=== PATIENT | male | born 1940 | race Caucasian/White ===

== ENCOUNTER 2017-02-27 18:04 | Inpatient (IN) | payer MEDICARE, OTHER ==
[~2017-02-27] VITALS: Ht 182.9 cm; Wt 87.4 kg
[2017-02-27] MEDS ORDERED: IPRATROPIUM (NEB) 0.5 MG/2.5 ML AMP INH STA (23:17)
[2017-02-27] MEDS ORDERED: FUROSEMIDE 100 MG INJ IV STA (23:17)
[2017-02-27] MEDS ORDERED: ALBUTEROL 0.083% (NEB) 2.5 MG/3 ML AMP INH STA (23:17)
[2017-02-27] MEDS ORDERED: WARF7.5T PO (23:41)
[2017-02-27] MEDS ORDERED: CARV25TA79 PO (23:41)
[2017-02-27] MEDS ORDERED: DIGO125T19 PO (23:42)
[2017-02-27] MEDS ORDERED: ROSU5TAB5 PO (23:42)
[2017-02-27] MEDS ORDERED: AMLO2.5T78 PO (23:43)
[2017-02-27] MEDS ORDERED: UBID30CA12 PO (23:44)
[2017-02-27 23:45] LABS: ABNORMAL IP MESSAGE 1; BASOPHIL # 0.1 10^3/ul (0.0-0.1); BASOPHILS % 0.8 % (0.0-2.0); EOSINOPHILS # 0.8 10^3/ul (0.0-0.5); EOSINOPHILS % 9.7 % (0.0-7.0); HEMATOCRIT 41.1 % (42.0-52.0); HEMOGLOBIN 13.9 g/dl (14.0-18.0); LYMPHOCYTES # 1.9 10^3/ul (0.8-2.9); LYMPHOCYTES % 22.4 % (15.0-51.0); MEAN CORPUSCULAR HEMOGLOBIN 34.6 pg (29.0-33.0); MEAN CORPUSCULAR HGB CONC 33.8 g/dl (32.0-37.0); MEAN CORPUSCULAR VOLUME 102.2 fl (82.0-101.0); MONOCYTES % 11.4 % (0.0-11.0); NEUTROPHIL # 4.7 10^3/ul (1.6-7.5); NEUTROPHILS % 55.5 % (39.0-77.0); PLATELET COUNT 86 10^3/UL (140-415); POSITIVE DIFF @See below; RED BLOOD COUNT 4.02 10^6/ul (4.70-6.10); RED CELL DISTRIBUTION WIDTH 12.8 % (11.5-14.5); WHITE BLOOD COUNT 8.4 10^3/ul (4.8-10.8)
[2017-02-28] VITALS (15 sets, daily range): BP systolic 129–167; BP diastolic 61–70; PULSE 36–59; RESP 16–18; TEMP 97.8; Ht 182.9 cm; Wt 87.4 kg
[2017-02-28 00:05] LABS: ALANINE AMINOTRANSFERASE 37 IU/L (13-69); ALBUMIN 4.4 g/dl (3.3-4.9); ALBUMIN/GLOBULIN RATIO 1.18; ALKALINE PHOSPHATASE 78 IU/L (42-121); ANION GAP 17 (8-16); ASPARTATE AMINO TRANSFERASE 44 IU/L (15-46); BILIRUBIN,INDIRECT 1.7 mg/dl (0-1.1); BILIRUBIN,TOTAL 1.7 mg/dl (0.2-1.3); BLOOD UREA NITROGEN 19 mg/dl (7-20); CARBON DIOXIDE 27 mmol/L (21-31); CHLORIDE 103 mmol/L (97-110); CREATININE 1.05 mg/dl (0.61-1.24); GLUCOSE 85 mg/dl (70-220); POTASSIUM 4.8 mmol/L (3.5-5.1); SODIUM 142 mmol/L (135-144); TOTAL PROTEIN 8.1 g/dl (6.1-8.1)
[2017-02-28 00:17] LABS: B-TYPE NATRIURETIC PEPTIDE 1290 PG/ML (0-450)
[2017-02-28 00:22] LABS: TROPONIN-I < 0.012 ng/ml (0.00-0.12)
[2017-02-28 00:36] LABS: INR 1.87; PROTIME 21.9 Sec (11.9-14.9); PT RATIO 1.7
[2017-02-28 00:37] LABS: PARTIAL THROMBOPLASTIN TIME 36.6 Sec (25.0-35.0)
--- NOTE | 2017-02-28 01:30 | RADRPT ---
PROCEDURE: XR Chest. CLINICAL INDICATION: Shortness of breath. TECHNIQUE: Single frontal chest x-ray. COMPARISON: None. FINDINGS: Heart is enlarged. There are atherosclerotic calcifications of the aortic knob.. Pulmonary vessels are top normal caliber.. There are right greater than left pleural effusions with associated basilar atelectasis.. There is no pneumothorax. The osseous structures are unremarkable. IMPRESSION: Cardiomegaly. No CHF. Right greater than left pleural effusion with basilar atelectasis. RPTAT: HMVK .Marcus Leonardo MD, MD Date Time Electronically viewed and signed by .Marcus Leonardo MD, on 02/28/2017 01:30 .K/
--- NOTE | 2017-02-28 02:17 | ERD ---
ER Documentation Chief Complaint Chief Complaint sob today HPI This is a 76-year-old male comes in with complaints of shortness of breath earlier today getting progressively worse. He is noticeable swelling over the past 2 days. Denies any chest pain nausea vomiting fevers or chills. Shortness breath is worse when he lays down and worse when he exerts himself. ROS All systems reviewed and are negative except as per history of present illness. Medications Home Meds Reported Medications Ubidecarenone (Coq-10) Unknown Strength Capsule, 1 CAP PO BID, CAP 02/27/17 Amlodipine Besylate* (Amlodipine Besylate*) 2.5 Mg Tablet, 2.5 MG PO QHS, #30 TAB 02/27/17 Rosuvastatin Calcium* (Crestor*) 5 Mg Tablet, 5 MG PO QHS, #30 TAB 02/27/17 Digoxin* (Digox*) 125 Mcg Tablet, 0.125 MG PO DAILY, TAB 02/27/17 Carvedilol* (Carvedilol*) 25 Mg Tablet, 25 MG PO BID, #60 TAB 02/27/17 Warfarin Sodium* (Coumadin*) 7.5 Mg Tablet, 7.5 MG PO DAILY, TAB TAKE 1 TAB IN SAT,W, AND TAKE 1/2 TAB IN M,T,TH,F,SUN 02/27/17 Allergies Allergies: Coded Allergies: codeine (Unverified Allergy, Unknown, 02/27/17) PMhx/Soc Medical and Surgical Hx: pt denies Surgical Hx Hx Neurological Disorder: No Hx Respiratory Disorders: No Hx Cardiac Disorders: Yes (CHF) Hx Psychiatric Problems: No Hx Miscellaneous Medical Probl: No Hx Alcohol Use: No Hx Substance Use: No Hx Tobacco Use: No Smoking Status: Never smoker Physical Exam Vitals Vital Signs Date Time Temp Pulse Resp B/P Pulse Ox O2 Delivery O2 Flow Rate FiO2 02/27/17 23:37 Nasal Cannula 2.0 02/27/17 23:35 Nasal Cannula 2 02/27/17 23:34 58 18 98 Nasal Cannula 2.0 02/27/17 18:11 98.2 60 20 179/73 93 Physical Exam Const: [] Head: Atraumatic Eyes: Normal Conjunctiva ENT: Normal External Ears, Nose and Mouth. Neck: Full range of motion..~ No meningismus. Resp: Clear to auscultation bilaterally Cardio: Regular rate and rhythm, no murmurs Abd: Soft, non tender, non distended. Normal bowel sounds Skin: No petechiae or rashes Back: No midline or flank tenderness Ext: No cyanosis, or edema Neur: Awake and alert Psych: Normal Mood and Affect Result Diagram: 02/27/17231902/27/17 2320 Results 24 hrs Laboratory Tests Test 02/27/17 23:20 02/27/17 23:50 White Blood Count 8.410^3/ul Red Blood Count 4.0210^6/ul Hemoglobin 13.9g/dl Hematocrit 41.1% Mean Corpuscular Volume 102.2fl Mean Corpuscular Hemoglobin 34.6pg Mean Corpuscular Hemoglobin Concent 33.8g/dl Red Cell Distribution Width 12.8% Platelet Count 8610^3/UL Mean Platelet Volume 11.0fl Neutrophils % 55.5% Lymphocytes % 22.4% Monocytes % 11.4% Eosinophils % 9.7% Basophils % 0.8% Nucleated Red Blood Cells % 0.0/100WBC Neutrophils # 4.710^3/ul Lymphocytes # 1.910^3/ul Monocytes # 1.010^3/ul Eosinophils # 0.810^3/ul Basophils # 0.110^3/ul Nucleated Red Blood Cells # 0.010^3/ul Sodium Level 142mmol/L Potassium Level 4.8mmol/L Chloride Level 103mmol/L Carbon Dioxide Level 27mmol/L Anion Gap 17 Blood Urea Nitrogen 19mg/dl Creatinine 1.05mg/dl Glucose Level 85mg/dl Calcium Level 10.0mg/dl Total Bilirubin 1.7mg/dl Direct Bilirubin 0.00mg/dl Indirect Bilirubin 1.7mg/dl Aspartate Amino Transf (AST/SGOT) 44IU/L Alanine Aminotransferase (ALT/SGPT) 37IU/L Alkaline Phosphatase 78IU/L Troponin I < 0.012ng/ml B-Type Natriuretic Peptide 1290PG/ML Total Protein 8.1g/dl Albumin 4.4g/dl Globulin 3.70g/dl Albumin/Globulin Ratio 1.18 Prothrombin Time 21.9Sec Prothrombin Time Ratio 1.7 INR International Normalized Ratio 1.87 Activated Partial Thromboplast Time 36.6Sec Current Medications Medications (Trade) Dose Ordered Sig/Osmin Route PRN Reason Start Time Stop Time Status Last Admin Dose Admin Albuterol (Proventil 0.083% (Neb)) 5 mg ONCE STAT INH 02/27/17 23:17 02/27/17 23:28 DC 02/27/17 23:33 Ipratropium [place] (Atrovent 0.02% (Neb)) 0.5 mg ONCE STAT INH 02/27/17 23:17 02/27/17 23:28 DC 02/27/17 23:33 Furosemide (Lasix) 80 mg ONCE STAT IV 02/27/17 23:17 02/27/17 23:28 DC 02/27/17 23:43 Procedures/MDM EKG: Rate/Rhythm: [Normal Sinus Rhythm] QRS, ST, T-waves: [No changes consistent w/ acute ischemia] Impression: [No evidence of ischemia or arrhythmia] Chest X-ray 1V Interpreted by me: Soft Tissue: No acute abnormalities Bones: No acute abnormalities Mediastinum/Cardiac Silhouette/Lungs: [No acute abnormalities] Medical decision-making: Patient's heart failure symptoms is concerning for acute decompensation and will require inpatient workup and monitoring. Further w/u for ischemia, arrhythmia, PE or dissection will be deferred to the inpatient team. Accepting Care Team: Current data and ongoing care discussed. Time: 2:10 AM Primary Provider: Admitted to Dr. Leigh who is on-call for primary care physician Consulting: [XOXOXO] Outstanding Data: none Departure Diagnosis: Primary Impression: Shortness of breath Condition: Serious TL PHILLIPS Feb 28, 2017 02:16
[2017-02-28] MEDS ORDERED: ACETAMINOPHEN 325 MG TAB PO PRN (08:30)
[2017-02-28] MEDS ORDERED: hydrALAzine 20 MG INJ IV PRN (08:30)
[2017-02-28] MEDS ORDERED: DIGOXIN 0.125 MG TAB PO SCH (09:00)
--- NOTE | 2017-02-28 13:59 | HP ---
DATE OF ADMISSION: 02/28/2017 ADMITTING DIAGNOSIS: Possible CHF. HISTORY OF PRESENT ILLNESS: The patient is a 76-year-old male with chronic atrial fibrill ation, nonischemic cardiomyopathy, hypertension, alcohol abuse, hyperlipidemia who presented to the emergency room with shortness of breath and weakness and leg swelling over the last several days. T he patient reports that he has been having some dyspnea on exertion walking to the car or doing thin gs in and around the house and does not have to do a lot to get out of breath. The patient is able to recover somewhat quickly from his shortness of breath. The patient denies any true orthopnea but has noticed increased swelling in the ankles over the last week or two. The patient denies any osorio st pain, palpitations, hemoptysis. The patient denies any wheezing, cough or other. REVIEW OF SYSTEMS: Otherwise unremarkable. PAST MEDICAL HISTORY: Nonischemic cardiomyopathy, chronic atrial fibrillation, alcohol abuse, hyper tension, hyperlipidemia, gout, chronic venous insufficiency. PAST SURGICAL HISTORY: Cataract extraction with lens implantation. FAMILY HISTORY: Father at age 65 of cancer. Mother at age 91 of congestive heart failure . ALLERGIES: NONE. MEDICATIONS: 1. Digoxin 0.125 mcg daily. 2. Rosuvastatin 5 mg daily. 3. Coenzyme Q10 one cap b.i.d. 4. Amlodipine 2.5 mg daily. 5. Warfarin 7.5 mg daily. 6. Carvedilol 25 mg b.i.d. SOCIAL HISTORY: Patient is , retired. No tobacco. Patient drinks vodka daily. PHYSICAL EXAMINATION: VITAL SIGNS: Initially in the emergency room, blood pressure was 179/73, temperature 98.2, pulse is 60, respirations 20, oxygen saturation 93% on room air. Currently pulse is 37, blood pressure last done at 6:00 this morning was 139/63, oxygen saturation 98% on room air, respirations 18, pulse is 55 at that time and temperature 97.9. GENERAL: Well-developed, well-nourished male in no acute distress, lying in bed. HEENT: EOMI, PERRLA. Oropharynx clear without exudate. NECK: Jugular venous pressure approximately 6 to 7 cm at 30 degrees of elevation, 2+ carotid upstro ke without bruits. No thyromegaly. No lymphadenopathy. CHEST: Decreased breath sounds bilateral bases with slight dullness, otherwise clear to auscultatio n bilaterally without rales, rhonchi or wheezes. HEART: Bradycardic and irregular. A I/ systolic murmur. ABDOMEN: Soft, nontender, no obvious hepatojugular reflux. Normoactive bowel sounds, nondistended. No hepatosplenomegaly noted. GENITOURINARY: Normal male. No masses. EXTREMITIES: No cyanosis, clubbing and there is 1+ bilateral lower extremity edema. There are good distal pulses with venous stasis changes bilateral lower extremities. NEUROLOGIC: Nonfocal except for decreased pinprick, fine touch, vibration and temperature bilateral lower extremities in a stocking distribution. LABORATORY EXAMINATION: White blood cell count 8.4, hemoglobin of 13.9, hematocrit 41.1, platelets of 86. PT of 21.9, INR of 1.87, PTT of 36.6. Sodium 142, potassium 4.8, chloride 103, bicarbonate 27, BUN of 19, creatinine 1.05, glucose of 85, calcium 10.0. Total bilirubin 1.7, AST of 44, ALT of 37, alkaline phosphatase 78. Troponin #1 less than 0.012. Troponin #2 0.023. Brain natriuretic p eptide is 1290. Albumin is 4.4. TSH is 4.320. Chest x-ray shows cardiomegaly with no evidence of CHF. There is right greater than left pleural effusion with basilar atelectasis. IMPRESSION: The patient is a 76-year-old male with chronic atrial fibrillation, nonischemic cardiom yopathy, hypertension, hyperlipidemia, alcohol abuse who presented to the emergency room with shortn ess of breath, leg swelling and weakness. The patient was found to be bradycardic and possible mild right heart failure with no evidence of left heart failure, except for pleural effusions. The roselia ent is being admitted to telemetry for further evaluation and treatment. 1. Bradycardia/congestive heart failure/hypertension/nonischemic cardiomyopathy. The patient is br adycardic and likely related to combination of his carvedilol as well as his digoxin. We will hold these medications and continued on telemetry. The patient does have atrial fibrillation and may nee d some form of rate control and if he continues to be bradycardic will possibly need pacemaker. Matteo l have cardiology assist in the patient's workup and treatment. We will check a digoxin level as we ll as thyroid functions in order to evaluate further and will continue with amlodipine and p.r.n. hy dralazine for his blood pressure. 2. Hyperlipidemia. We will continue with Rosuvastatin. 3. Thrombocytopenia, new, unclear etiology. We will continue to monitor as this is new for the pat ient and it may be related to his alcohol use. Dictated By: JOY DIAZ MD SR/NTS Conf#: [id number] DID#: [id number]
--- NOTE | 2017-02-28 14:52 | CONS ---
Date/Time of Note Date/Time of Note DATE: 02/28/17 TIME: 14:42 Assessment/Plan Assessment/Plan Chief Complaint/Hosp Course Impression: Acute on chronic systolic heart failure- elevated bnp, pulm congestion on chxr. NYHA III symptoms. NICM per report, will need to confirm with records and obtain echo. cont diuresis. etoh cessation recommended - cont iv diuretic, goal neg 1L at least daily - hold dig/coreg given kirby - if bp stable will consider adding acei - cont tele monitoring - obtain echo Pauses- no reported symptoms, HD stable. on avn blockers, will hold. no indication for acute pacer, follow closely on tele. - tele monitoring - holding all avn blockers - monitor bp closely as well or for symptoms. - atropine prn severe kirby - no acute indication for pacer placement, will cont to re-eval Afib- on coumadin goal inr 2.0 to 3.0 - dosing per Dr. Arias - rate controlled, slow. holding avn blockers - check dig level ETOH hx- heavy drinker, low plt ? related - watch hr/bp given for e/o withdrawl while inpt - cessation recommended given NICM hx HLD- cont home statin Problems: Consultation Date/Type/Reason Admit Date/Time Feb 28, 2017 at 02:14 Date of Consultation: Feb 28, 2017 Type of Consultation: Cardiology Reason for Consultation Bradycardia, Afib, CHF Referring Provider: JOY ARIAS MD- Hx of Present Illness Mr. Bañuelos is a 76 y.o. with h/o of ETOH abuse, NICM, Afib who presents with acute on chornic systolic heart failure and afib with slow ventricular response. Pt states has 2 weeks of progressive dyspnea on exertion and fatigue. notices he has to stop when mowing lawn to rest, previously able to do activities without symptoms. also walking to bathroom now mild sob. no chest pain/ pressure, n/v, sweating. pt states no pnd, orthopnea. mild edema in ankles as of late. no palpitations, dizziness, fainting. no recent fevers, chills, sweats. takes medication regularly, no bleeding episodes. does drink 1 pint of vodka every evening he states Constitutional: no complaints Eyes: no complaints ENT: no complaints Respiratory: shortness of breath Cardiovascular: no complaints Gastrointestinal: no complaints Genitourinary: no complaints Musculoskeletal: no complaints Skin: no complaints Neurologic: no complaints Lymphatic: no complaints Psychological: nl mood/affect, no complaints Immunologic: no complaints Past Medical History PAST MEDICAL HISTORY: Nonischemic cardiomyopathy, chronic atrial fibrillation, alcohol abuse, hypertension, hyperlipidemia, gout, chronic venous insufficiency. Past Surgical History PAST SURGICAL HISTORY: Cataract extraction with lens implantation. Past Surgical Hx: other (mother chf) Social History Alcohol Use: heavy Smoking Status: Never smoker Drug Use: none Exam/Review of Systems Vital Signs Vitals Vital Signs Date Time Temp Pulse Resp B/P Pulse Ox O2 Delivery O2 Flow Rate FiO2 02/28/17 12:00 37 02/28/17 08:10 98.1 18 167/70 93 Room Air 02/28/17 02:37 2.0 Exam Constitutional: alert, oriented Psych: nl mood/affect, no complaints Head: normocephalic Eyes: EOMI, nl conjunctiva, nl lids ENMT: mucosa pink and moist, nl external ears & nose Neck: jvd, non-tender, supple Respiratory: other (crackles L>R base) Cardiovascular: other (slow irregualr, nl s1s2, ii/vi systolic llsb) Gastrointestinal: non-tender, other (mild distention), soft Musculoskeletal: muscle tone, nl gait and stance, other (mild ble edema < 1+) Extremities: normal pulses Neurological: ART CONSERVATOR II-XII intact, nl mental status, nl speech Skin: nl turgor Results Result Diagram: 02/27/170 02/27/17 2320 Results 24 hrs Laboratory Tests Test 02/27/17 23:20 02/27/17 23:50 02/28/17 08:31 02/28/17 08:32 White Blood Count 8.4 Red Blood Count 4.02 L Hemoglobin 13.9 L Hematocrit 41.1 L Mean Corpuscular Volume 102.2 H Mean Corpuscular Hemoglobin 34.6 H Mean Corpuscular Hemoglobin Concent 33.8 Red Cell Distribution Width 12.8 Platelet Count 86 L Mean Platelet Volume 11.0 H Neutrophils % 55.5 Lymphocytes % 22.4 Monocytes % 11.4 H Eosinophils % 9.7 H Basophils % 0.8 Nucleated Red Blood Cells % 0.0 Neutrophils # 4.7 Lymphocytes # 1.9 Monocytes # 1.0 H Eosinophils # 0.8 H Basophils # 0.1 Nucleated Red Blood Cells # 0.0 Sodium Level 142 Potassium Level 4.8 Chloride Level 103 Carbon Dioxide Level 27 Anion Gap 17 H Blood Urea Nitrogen 19 Creatinine 1.05 Glucose Level 85 Calcium Level 10.0 Total Bilirubin 1.7 H Direct Bilirubin 0.00 Indirect Bilirubin 1.7 H Aspartate Amino Transf (AST/SGOT) 44 Alanine Aminotransferase (ALT/SGPT) 37 Alkaline Phosphatase 78 Troponin I < 0.012 0.023 B-Type Natriuretic Peptide 1290 H Total Protein 8.1 Albumin 4.4 Globulin 3.70 H Albumin/Globulin Ratio 1.18 Prothrombin Time 21.9 H Prothrombin Time Ratio 1.7 INR International Normalized Ratio 1.87 Activated Partial Thromboplast Time 36.6 H Thyroid Stimulating Hormone (TSH) 4.320 Medications Medications Current Medications Amlodipine Besylate (Norvasc) 2.5 mg QHS PO ; Start 02/28/17 at 21:00 Warfarin Sodium (Coumadin) 7.5 mg DAILY@17 PO ; Start 02/28/17 at 17:00 Atorvastatin Calcium (Lipitor) 20 mg DAILY@21 PO ; Start 02/28/17 at 21:00 Hydralazine HCl (Apresoline) 5 mg Q6H PRN IV SBP>180 OR DBP>100; Start at 08:30 Acetaminophen (Tylenol Tab) 650 mg Q6H PRN PO PAIN AND OR ELEVATED TEMP; Start 02/28/17 at 08:30 Procedures Procedures EKG reviewed: afib with hr 58. tele reviewed: afib mostly 40s-50s, up to 60s with movement. episode of brief pauses maximum 3.2 seconds, no report of dizziness at the time per nursing. MAITE GARCIA Feb 28, 2017 14:52
[2017-02-28] MEDS ORDERED: WARFARIN 7.5 MG TAB PO SCH (17:00)
[2017-02-28] MEDS: AMLODIPINE 2.5 MG TAB PO SCH (21:55)
[2017-02-28] MEDS: ATORVASTATIN 20 MG TAB PO SCH (21:55)
[2017-03-01] VITALS (10 sets, daily range): BP systolic 105–138; BP diastolic 58–73; PULSE 42–56; RESP 12–18
[2017-03-01 07:06] LABS: ABNORMAL IP MESSAGE 1; BASOPHILS % 0.7 % (0.0-2.0); EOSINOPHILS # 0.5 10^3/ul (0.0-0.5); HEMATOCRIT 38.8 % (42.0-52.0); LYMPHOCYTES # 1.8 10^3/ul (0.8-2.9); LYMPHOCYTES % 32.3 % (15.0-51.0); MEAN CORPUSCULAR HEMOGLOBIN 34.1 pg (29.0-33.0); MEAN CORPUSCULAR HGB CONC 33.5 g/dl (32.0-37.0); MEAN CORPUSCULAR VOLUME 101.8 fl (82.0-101.0); MEAN PLATELET VOLUME 10.8 fl (7.4-10.4); MONOCYTE # 0.7 10^3/ul (0.3-0.9); MONOCYTES % 13.3 % (0.0-11.0); NEUTROPHIL # 2.4 10^3/ul (1.6-7.5); NEUTROPHILS % 44.5 % (39.0-77.0); PLATELET COUNT 72 10^3/UL (140-415); POSITIVE DIFF @See below; RED BLOOD COUNT 3.81 10^6/ul (4.70-6.10); RED CELL DISTRIBUTION WIDTH 12.9 % (11.5-14.5); WHITE BLOOD COUNT 5.4 10^3/ul (4.8-10.8)
[2017-03-01 07:26] LABS: INR 1.67; PT RATIO 1.6
[2017-03-01 07:31] LABS: CALCIUM 9.4 mg/dl (8.4-10.2); CREATININE 1.21 mg/dl (0.61-1.24); POTASSIUM 4.4 mmol/L (3.5-5.1)
--- NOTE | 2017-03-01 08:29 | RADRPT ---
PROCEDURE: XR Chest. CLINICAL INDICATION: CHF TECHNIQUE: Single frontal chest x-ray. COMPARISON: CHEST 02/27/2017 FINDINGS: Hazy bibasilar pulmonary opacities are again noted, greater on the right. No pneumothorax is identif ied. There is stable mild cardiomegaly Aortic atherosclerotic calcification is noted. The osseous structures are remarkable for degenerative enthesopathy of the spine. IMPRESSION: 1. Stable hazy bibasilar pulmonary opacities, greater on the right - considerations include atelect asis and/or mild to moderate pleural effusions. 2. Stable mild cardiomegaly and aortic atherosclerosis. RPTAT: QQ .Josh Donaldson MD, MD Date Time Electronically viewed and signed by .Josh Donaldson MD, on 03/01/2017 08:28 .R/
--- NOTE | 2017-03-01 09:34 | RADRPT ---
Echocardiogram Report Patient Name: JULIENNE BAL Gender: Male Date: 1940 Study Date: 01-Mar-2017 Tinsmith Helper: David Manning [facility] Location: [id number] Ref. Physician: BABATUNDE GARCIA Quality: Good Procedures: Transthoracic echocardiogram with complete 2D, M-Mode, and doppler examination. Indications: Congestive Heart Failure. 2D/M Mode Doppler Measurement Value Normal Ranges Measurement Value Normal Ranges LVIDd 2D 4.7 3.5 - 5.6 cm AV Peak Anuel 1.8 m/sec LVIDs 2D 3.1 2.1 - 4.1 cm AV Peak PG 12.9 mmHg LVPWd 2D 1.1 0.6 - 1.1 cm AI Peak PG 66.7 mmHg IVSd 2D 1.0 0.6 - 1.1 cm AI Peak Anuel 4.1 m/sec AoR Diam 2D 3.0 2.0 - 3.7 cm AI PHT 604.3 msec EDV 2D 101.8 cm3 LVOT Peak Anuel 1.0 m/sec ESV 2D 29.8 cm3 LVOT Peak PG 3.6 mmHg LA Dimen 2D 4.1 2.3 - 4.0 cm MV E Peak Anuel 1.2 m/sec MV A Peak Anuel 0.2 m/sec MV E/A 6.3 MV Decel Time 175 msec MV Decel Davie 7 MV E/A 6.3 TR Peak Anuel 3.6 m/sec TR Peak PG 50.8 mmHg RVSP 59.0 mmHg Findings Left Ventricle: Normal left ventricular cavity size. Normal left ventricular wall thickness. Mild concentric left ventricular hypertrophy. Ejection fraction is visually estimated at 65 %. Tissue Doppler/Mitral Doppler indices are indeterminate in this study due to the presence of afib. Right Ventricle: Normal right ventricular size. Normal right ventricular systolic function. Left Atrium: There is mild enlargement of left atrium. Right Atrium: There is moderate enlargement of right atrium. Mitral Valve: Mitral valve leaflets appear mildly thickened. Mild mitral annular calcification. Trace mitral regurgitation. Aortic Valve: No hemodynamically significant aortic stenosis by doppler. Aortic cusps appear mildly calcified. Mild aortic valve regurgitation. Tricuspid Valve: Normal appearance of the tricuspid valve. Right ventricular systolic pressure is consistent with moderate pulmonary hypertension. Estimated peak PA systolic pressure 59 mmHg. There is moderate tricuspid regurgitation. Pulmonic Valve: Normal pulmonic valve appearance. There is trace pulmonic regurgitation. Pericardium: Trivial pericardial effusion. Aorta: Normal aortic root. IVC: Dilated IVC with respiratory collapse consistent with elevated right atrial pressure. Conclusions Normal left ventricular cavity size. Normal left ventricular wall thickness. Mild concentric left ventricular hypertrophy. Ejection fraction is visually estimated at 65 %. Tissue Doppler/Mitral Doppler indices are indeterminate in this study due to the presence of afib. Normal right ventricular size. Normal right ventricular systolic function. There is mild enlargement of left atrium. There is moderate enlargement of right atrium. No hemodynamically significant aortic stenosis by doppler. Aortic cusps appear mildly calcified. Mild aortic valve regurgitation. Normal appearance of the tricuspid valve. Right ventricular systolic pressure is consistent with moderate pulmonary hypertension. Estimated peak PA systolic pressure 59 mmHg. There is moderate tricuspid regurgitation. Trivial pericardial effusion. Normal aortic root. Dilated IVC with respiratory collapse consistent with elevated right atrial pressure. No Vegetation, masses, or thrombi seen. Electronically Signed By: Babatunde Garcia 01-Mar-2017 09:33:37 -0800 Patient Name: JULIENNE BAL Study Date: 01-Mar-2017 [id number]
--- NOTE | 2017-03-01 09:41 | CONS ---
Date/Time of Note Date/Time of Note DATE: 03/01/17 TIME: 09:34 Assessment/Plan Assessment/Plan Chief Complaint/Hosp Course Impression: Acute on chronic systolic heart failure- elevated bnp, pulm congestion on chxr. NYHA III symptoms. NICM with normalized LVEF likely 2/2 h/o ETOH use. normal LVEF/wall motion on echo this am. - switch to po lasix 40mg daily to keep slightly negative - low na diet, daily wts. - hold dig/coreg given kirby - etoh cessation Pauses- no reported symptoms, HD stable. holding avn blockers, hr increases with activity. no indication for acute pacer, follow closely on tele. - tele monitoring - holding all avn blockers - atropine prn severe kirby - no acute indication for pacer placement, will cont to re-eval Afib- on coumadin goal inr 2.0 to 3.0 - dosing per Dr. Arias - rate controlled, slow. holding avn blockers ETOH hx- heavy drinker, low plt ? related - watch hr/bp given for e/o withdrawal while inpt - cessation recommended given NICM hx HLD- cont home statin Problems: Consultation Date/Type/Reason Admit Date/Time Feb 28, 2017 at 15:31 Initial Consult Date 02/28/17 Type of Consultation: Cardiology Referring Provider: JOY ARIAS MD- 24 HR Interval Summary Free Text/Dictation no acute events. pt state feels well. no chest pain, sob. ambulatory no dizziness, falls, blurred vision. tele reviewed, had 3.08 sec pause at 3:48 pm yesterday, otherwise no pauses. hrs mostly 50s, up to 60s-70s with ambulating. lowest 38 while sleeping. Detailed Summary ENT: No bleeding, No congestion, No discharge, No dysphagia, No no complaints, No other, No pain, No sore throat Respiratory: No cough, No no complaints, No other, No pain, No pleuritic pain, No shortness of breath, No sputum, No wheezing Cardiovascular: No chest pain, No edema, No lightheadedness, No no complaints, No orthopenea, No other, No palpitations, No paroxysmal nocturnal dyspnea Gastrointestinal: No blood, No constipation, No decreased appetite, No diarrhea , No flatus, No nausea, No no complaints, No other, No pain, No passing stool, No vomiting Exam/Review of Systems Vital Signs Vitals Vital Signs Date Time Temp Pulse Resp B/P Pulse Ox O2 Delivery O2 Flow Rate FiO2 03/01/17 08:00 51 03/01/17 06:09 99.0 18 105/60 94 Nasal Cannula 1.0 Intake and Output 02/28/17 02/28/17 03/01/17 15:00 23:00 07:00 Intake Total 1200 ml 950 ml Balance 1200 ml 950 ml Exam Constitutional: alert, oriented Psych: nl mood/affect, no complaints Head: normocephalic Eyes: EOMI, nl conjunctiva, nl lids ENMT: mucosa pink and moist, nl external ears & nose Neck: jvd, non-tender, supple Respiratory: other (crackles L>R base) Cardiovascular: other (slow irregualr, nl s1s2, ii/vi systolic llsb) Gastrointestinal: non-tender, other (mild distention), soft Musculoskeletal: muscle tone, nl gait and stance, other (mild ble edema < 1+) Extremities: normal pulses Neurological: SCENARIO WRITER II-XII intact, nl mental status, nl speech Skin: nl turgor Results Result Diagram: 03/01/1763203/01/1733 Results 24 hrs Laboratory Tests Test 03/01/17 06:33 White Blood Count 5.4 # Red Blood Count 3.81 L Hemoglobin 13.0 L Hematocrit 38.8 L Mean Corpuscular Volume 101.8 H Mean Corpuscular Hemoglobin 34.1 H Mean Corpuscular Hemoglobin Concent 33.5 Red Cell Distribution Width 12.9 Platelet Count 72 L Mean Platelet Volume 10.8 H Neutrophils % 44.5 Lymphocytes % 32.3 Monocytes % 13.3 H Eosinophils % 9.0 H Basophils % 0.7 Nucleated Red Blood Cells % 0.0 Neutrophils # 2.4 Lymphocytes # 1.8 Monocytes # 0.7 Eosinophils # 0.5 Basophils # 0.0 Nucleated Red Blood Cells # 0.0 Prothrombin Time 20.0 H Prothrombin Time Ratio 1.6 INR International Normalized Ratio 1.67 Sodium Level 140 Potassium Level 4.4 Chloride Level 100 Carbon Dioxide Level 30 Anion Gap 14 Blood Urea Nitrogen 20 Creatinine 1.21 Glucose Level 81 Calcium Level 9.4 B-Type Natriuretic Peptide 1280 H Digoxin Level 0.7 L Medications Medications Current Medications Amlodipine Besylate (Norvasc) 2.5 mg QHS PO Last administered on 02/28/17 21: 55; Admin Dose 2.5 MG; Start 02/28/17 at 21:00 Atorvastatin Calcium (Lipitor) 20 mg DAILY@21 PO Last administered on 21:55; Admin Dose 20 MG; Start 02/28/17 at 21:00 Hydralazine HCl (Apresoline) 5 mg Q6H PRN IV SBP>180 OR DBP>100; Start at 08:30 Acetaminophen (Tylenol Tab) 650 mg Q6H PRN PO PAIN AND OR ELEVATED TEMP; Start 02/28/17 at 08:30 Warfarin Sodium (Coumadin) 10 mg ONCE@17 ONCE GTB ; Start 03/01/17 at 17:00; Stop 03/01/17 at 17:01 Procedures Procedures cxr report reviewed echo images reviewed reprot in emr tele reviewed per hpi MAITE GARCIA Mar 01, 2017 09:41
[2017-03-01] MEDS: FUROSEMIDE 40 MG TAB PO SCH (10:31)
--- NOTE | 2017-03-01 11:19 | PN ---
DATE: 03/01/2017 SUBJECTIVE: The patient is feeling better with less shortness of breath with exertion, otherwise fe eling well. OBJECTIVE: VITAL SIGNS: T-max 99, pulse anywhere from 37 to 53, blood pressure 105/60, respirations 18, oxygen saturation 94% on 1 liter nasal cannula. GENERAL: Well-developed, well-nourished male in no acute distress. CHEST: Decreased breath sounds bilateral bases, otherwise clear to auscultation. HEART: Bradycardic and irregular. ABDOMEN: Soft, nontender. EXTREMITIES: Trace to 1+ bilateral lower extremity edema with stasis changes. NEUROLOGIC: Nonfocal. LABORATORY DATA: White blood cell count 5.4, hemoglobin 13.0, hematocrit of 38.8, platelet count 72 ,000. INR 1.67. ProBNP of 1280. TSH of 4.32. Sodium 140, potassium 4.4, chloride 100, bicarbonat e 30, BUN of 20, creatinine 1.21, glucose 81, calcium 9.4. ASSESSMENT AND PLAN: 1. Acute diastolic heart failure/bradycardia/atrial fibrillation/nonischemic cardiomyopathy. The p atient remains improved. The patient responded to diuresis with improved symptoms. The patient con tinues to have significant bradycardia. We will continue to hold medications and see how heart rate recovers. Appreciate Dr. Graves's consultation and input into this case. We will await his full workup and any further recommendations he might have. 2. Acute renal insufficiency, worse as patient is receiving diuretics. We will continue to follow. 3. Alcoholism, remains stable. The patient with no evidence of withdrawal at this time. We will c ontinue to monitor and treat accordingly. 4. Thrombocytopenia is worse. We will continue to monitor, likely related to the patient's alcohol abuse and toxicity. We will continue to follow. Dictated By: JOY DIAZ MD SR/TINA Conf#: [id number] DID#: [id number]
[2017-03-01] MEDS ORDERED: WARFARIN 10 MG TAB GTB ONE (17:00)
[2017-03-01] MEDS: ATORVASTATIN 20 MG TAB PO SCH (20:37)
[2017-03-01] MEDS: AMLODIPINE 2.5 MG TAB PO SCH (21:00)
[2017-03-02] VITALS (11 sets, daily range): BP systolic 118–146; BP diastolic 58–78; PULSE 46–61; RESP 16–18
[2017-03-02] MEDS: FUROSEMIDE 40 MG TAB PO SCH (05:55)
[2017-03-02 06:50] LABS: ABNORMAL IP MESSAGE 1; BASOPHILS % 0.5 % (0.0-2.0); EOSINOPHILS # 0.6 10^3/ul (0.0-0.5); EOSINOPHILS % 9.9 % (0.0-7.0); HEMATOCRIT 38.1 % (42.0-52.0); HEMOGLOBIN 13.1 g/dl (14.0-18.0); LYMPHOCYTES # 1.5 10^3/ul (0.8-2.9); LYMPHOCYTES % 27.2 % (15.0-51.0); MEAN CORPUSCULAR HEMOGLOBIN 34.2 pg (29.0-33.0); MEAN CORPUSCULAR HGB CONC 34.4 g/dl (32.0-37.0); MEAN CORPUSCULAR VOLUME 99.5 fl (82.0-101.0); MEAN PLATELET VOLUME 10.6 fl (7.4-10.4); MONOCYTE # 0.8 10^3/ul (0.3-0.9); MONOCYTES % 14.4 % (0.0-11.0); NEUTROPHIL # 2.7 10^3/ul (1.6-7.5); NEUTROPHILS % 47.8 % (39.0-77.0); PLATELET COUNT 69 10^3/UL (140-415); POSITIVE DIFF @See below; RED BLOOD COUNT 3.83 10^6/ul (4.70-6.10); RED CELL DISTRIBUTION WIDTH 12.9 % (11.5-14.5); WHITE BLOOD COUNT 5.6 10^3/ul (4.8-10.8)
[2017-03-02 08:06] LABS: POTASSIUM 3.8 mmol/L (3.5-5.1)
[2017-03-02 08:07] LABS: CALCIUM 9.4 mg/dl (8.4-10.2); CREATININE 1.03 mg/dl (0.61-1.24)
[2017-03-02 08:11] LABS: INR 1.56; PT RATIO 1.5
[2017-03-02] MEDS ORDERED: DIPHENHYDRAMINE 25 MG CAP PO PRN (08:30)
[2017-03-02] MEDS: CLOBETASOL 0.05% 15 GM CR TOP SCH ×2 (10:30→20:52)
--- NOTE | 2017-03-02 16:51 | PN ---
DATE: 03/02/2017 SUBJECTIVE: The patient is feeling better but continues to have some shortness of breath especially with lying down. The patient also complains of an itchy rash over his skin. OBJECTIVE: VITAL SIGNS: Temperature 97.2, pulse of 52, respirations 17, blood pressure 127/63, oxygen saturati on 96% on room air. GENERAL: Well-developed, thin male in no acute distress, lying in bed. CHEST: Decreased breath sounds bilateral bases, otherwise no rales or crackles noted. HEART: Bradycardic and regular. ABDOMEN: Soft, nontender, nondistended. EXTREMITIES: Trace bilateral lower extremity edema with stasis changes. SKIN: There is erythematous papular rash especially over the legs, left greater than right and left lateral flank and back with some excoriations. LABORATORY DATA: INR of 1.56 with a PT of 19. Sodium 141, potassium 3.8, chloride 99, bicarbonate 30, BUN of 20, creatinine 1.06, hemoglobin of 13.1, hematocrit 38.1, platelets of 69. White blood c ell count 5.6. ASSESSMENT: 1. Acute on chronic combined congestive heart failure/atrial fibrillation/non ischemic cardiomyopat hy/bradycardia/hypertension, improved. The patient continues to have bradycardia, but has improved off of the beta blockers and the digoxin. We will continue to adjust his medications and continue o n telemetry. We will continue the furosemide and the amlodipine for fluid and blood pressure contro l. We will continue telemetry monitoring. We will adjust the warfarin and give 10 mg x1 today to a chieve an INR between 2 and 3. 2. Thrombocytopenia, worse, but only mildly so will continue to monitor and likely related to alcoh ol. 3. Dermatitis, new. The patient has had this dermatitis in the past and is treated with clobetasol and will use clobetasol 0.05% creams b.i.d. to the affected skin. Dictated By: JOY DIAZ MD, SR/TINA Conf#: [id number] DID#: [id number]
[2017-03-02] MEDS ORDERED: WARFARIN 10 MG TAB PO SCH (17:00)
[2017-03-02] MEDS: AMLODIPINE 2.5 MG TAB PO SCH (20:51)
[2017-03-02] MEDS: ATORVASTATIN 20 MG TAB PO SCH (20:51)
[2017-03-03] VITALS (9 sets, daily range): BP systolic 118–122; BP diastolic 58–70; PULSE 38–66; RESP 16–21
[2017-03-03] MEDS: FUROSEMIDE 40 MG TAB PO SCH (06:42)
--- NOTE | 2017-03-03 08:08 | PDOCDIS ---
Discharge Instructions DIAGNOSIS Discharge Diagnosis congestive heart failure/bradycardia CONDITION Patient Condition: Good HOME CARE INSTRUCTIONS: Special Diet: 2GM NA ACTIVITY: Activity Restrictions: No Restrictions FOLLOW UP/APPOINTMENTS Follow-up Plan follow up with Dr Arias next week; call for appointment; follow up with Dr. Graves in the next 4-6wks, call for appt. JOY ARIAS MD- Mar 03, 2017 08:08
[2017-03-03] MEDS ORDERED: TEM15CR5 TOP (08:11)
[2017-03-03] MEDS ORDERED: POTA20TA96 PO (08:11)
[2017-03-03] MEDS ORDERED: FURO40TA4 PO (08:11)
--- NOTE | 2017-03-03 08:11 | CONS ---
Date/Time of Note Date/Time of Note DATE: 03/02/17 TIME: 08:10 Assessment/Plan Assessment/Plan Chief Complaint/Hosp Course Impression: Acute on chronic systolic heart failure- elevated bnp, pulm congestion on chxr. NYHA III symptoms. NICM with normalized LVEF likely 2/2 h/o ETOH use. normal LVEF/wall motion on echo this am. - switch to po lasix 40mg daily to keep slightly negative - low na diet, daily wts. - hold dig/coreg given kirby - etoh cessation Pauses- no reported symptoms, HD stable. holding avn blockers, hr increases with activity. no indication for acute pacer, follow closely on tele. - tele monitoring - holding all avn blockers - atropine prn severe kirby - no acute indication for pacer placement, will cont to re-eval Afib- on coumadin goal inr 2.0 to 3.0 - dosing per Dr. Arias - rate controlled, slow. holding avn blockers ETOH hx- heavy drinker, low plt ? related - watch hr/bp given for e/o withdrawal while inpt - cessation recommended given NICM hx HLD- cont home statin Problems: Consultation Date/Type/Reason Admit Date/Time Feb 28, 2017 at 15:31 Initial Consult Date 02/28/17 Type of Consultation: Cardiology Referring Provider: JOY ARIAS MD- 24 HR Interval Summary Free Text/Dictation pt seen 03/02 am. doing well no dizziness, sob improved. transferred to [facility]. pt has not ambulated much, but no dizziness when going to bathroom tele reviewed: HRs mostly 50s. lowest upper 30s no pauses Detailed Summary ENT: no complaints Respiratory: no complaints Cardiovascular: no complaints Exam/Review of Systems Vital Signs Vitals Vital Signs Date Time Temp Pulse Resp B/P Pulse Ox O2 Delivery O2 Flow Rate FiO2 03/03/17 07:39 98.7 56 21 118/67 90 03/03/17 04:00 Room Air 03/02/17 08:00 1.0 Intake and Output 03/02/17 03/02/17 03/03/17 15:00 23:00 07:00 Intake Total 1200 ml 300 ml Balance 1200 ml 300 ml Exam Constitutional: alert, oriented Psych: nl mood/affect, no complaints Head: normocephalic Eyes: EOMI, nl conjunctiva, nl lids ENMT: mucosa pink and moist, nl external ears & nose Neck: jvd, non-tender, supple Respiratory: CTA Cardiovascular: other (slow irregualr, nl s1s2, ii/vi systolic llsb) Gastrointestinal: non-tender, other (mild distention), soft Musculoskeletal: muscle tone, nl gait and stance, other (mild ble edema < 1+) Extremities: normal pulses Neurological: FARMER CASH GRAIN II-XII intact, nl mental status, nl speech Skin: nl turgor Results Result Diagram: 03/02/17 0620 03/02/17 0620 Medications Medications Current Medications Amlodipine Besylate (Norvasc) 2.5 mg QHS PO Last administered on 03/02/17 20: 51; Admin Dose 2.5 MG; Start 02/28/17 at 21:00 Atorvastatin Calcium (Lipitor) 20 mg DAILY@21 PO Last administered on 20:51; Admin Dose 20 MG; Start 02/28/17 at 21:00 Hydralazine HCl (Apresoline) 5 mg Q6H PRN IV SBP>180 OR DBP>100; Start at 08:30 Acetaminophen (Tylenol Tab) 650 mg Q6H PRN PO PAIN AND OR ELEVATED TEMP; Start 02/28/17 at 08:30 Furosemide (Lasix) 40 mg DAILY@06 PO Last administered on 03/03/17 06:42; Admin Dose 40 MG; Start 03/01/17 at 10:00 Clobetasol Propionate (Temovate 0.05% Cr) 1 applic BID TOP Last administered on 03/02/17 20:52; Admin Dose 1 APPLIC; Start 03/02/17 at 09:30 Diphenhydramine HCl (Benadryl) 25 mg Q6H PRN PO ITCHING Last administered on 20:55; Admin Dose 25 MG; Start 03/02/17 at 08:30 Procedures Procedures cxr report reviewed in MAITE Nelson Mar 03, 2017 08:11
[2017-03-03 08:14] LABS: INR 1.63; PROTIME 19.7 Sec (11.9-14.9); PT RATIO 1.5
--- NOTE | 2017-03-03 08:18 | CONS ---
Date/Time of Note Date/Time of Note DATE: 03/03/17 TIME: 08:12 Assessment/Plan Assessment/Plan Chief Complaint/Hosp Course Impression: Acute on chronic systolic heart failure- elevated bnp, pulm congestion on chxr. NYHA III symptoms. NICM with normalized LVEF likely 2/2 h/o ETOH use in past. normal LVEF/wall motion on repeat echo. symptoms improved with diuresis - cont lasix 40mg daily - low na diet, daily wts at home - hold dig/coreg given kirby - etoh cessation f/u as outpt ok to d/c home Pauses- no reported symptoms, HD stable. holding avn blockers, hr increases with activity, no symptoms with activity. no indication for acute pacer, - tele monitoring - holding all avn blockers - no acute indication for pacer placement - no prolonged pause during waking hours and no symptoms, hold off on ppm placement - ok to d/c home, will cont to follow as outpt Afib- on coumadin goal inr 2.0 to 3.0 - dosing per Dr. Arias - rate controlled, slow. holding avn blockers ETOH hx- heavy drinker, low plt ? related - cessation recommended given NICM hx HLD- cont home statin Problems: Consultation Date/Type/Reason Admit Date/Time Feb 28, 2017 at 15:31 Initial Consult Date 02/28/17 Type of Consultation: Cardiology Referring Provider: JOY ARIAS MD- 24 HR Interval Summary Free Text/Dictation pt seen 12/15 am. pt denies any cp/sob. no dizziness. states walked around unit x 3 times without dizziness, presyncope. breathing improved. no edema tele reviewed: mostly 50s, up to 60s with movement. lowest upper 30s briefly. did have one 3 sec pause while sleeping 23:52, no sustained severe kirby Detailed Summary ENT: no complaints Respiratory: no complaints Cardiovascular: no complaints Gastrointestinal: no complaints Exam/Review of Systems Vital Signs Vitals Vital Signs Date Time Temp Pulse Resp B/P Pulse Ox O2 Delivery O2 Flow Rate FiO2 03/03/17 07:39 98.7 56 21 118/67 90 03/03/17 04:00 Room Air 03/02/17 08:00 1.0 Intake and Output 03/02/17 03/02/17 03/03/17 15:00 23:00 07:00 Intake Total 1200 ml 300 ml Balance 1200 ml 300 ml Exam Constitutional: alert, oriented Psych: nl mood/affect, no complaints Head: normocephalic Eyes: EOMI, nl conjunctiva, nl lids ENMT: mucosa pink and moist, nl external ears & nose Neck: jvd, non-tender, supple Respiratory: CTA Cardiovascular: other (slow irregular, nl s1s2, ii/vi systolic llsb) Gastrointestinal: non-tender, other (mild distention), soft Musculoskeletal: muscle tone, nl gait and stance, no edema Extremities: normal pulses Neurological: INVENTORY ASSISTANT II-XII intact, nl mental status, nl speech Skin: nl turgor Results Result Diagram: 03/02/17 0620 03/02/17 0620 Medications Medications Current Medications Amlodipine Besylate (Norvasc) 2.5 mg QHS PO Last administered on 03/02/17 20: 51; Admin Dose 2.5 MG; Start 02/28/17 at 21:00 Atorvastatin Calcium (Lipitor) 20 mg DAILY@21 PO Last administered on 20:51; Admin Dose 20 MG; Start 02/28/17 at 21:00 Hydralazine HCl (Apresoline) 5 mg Q6H PRN IV SBP>180 OR DBP>100; Start at 08:30 Acetaminophen (Tylenol Tab) 650 mg Q6H PRN PO PAIN AND OR ELEVATED TEMP; Start 02/28/17 at 08:30 Furosemide (Lasix) 40 mg DAILY@06 PO Last administered on 03/03/17 06:42; Admin Dose 40 MG; Start 03/01/17 at 10:00 Clobetasol Propionate (Temovate 0.05% Cr) 1 applic BID TOP Last administered on 03/02/17 20:52; Admin Dose 1 APPLIC; Start 03/02/17 at 09:30 Diphenhydramine HCl (Benadryl) 25 mg Q6H PRN PO ITCHING Last administered on 20:55; Admin Dose 25 MG; Start 03/02/17 at 08:30 Procedures Procedures cxr report reviewed MAITE GARCIA Mar 03, 2017 08:18
[2017-03-03 08:19] LABS: CALCIUM 9.7 mg/dl (8.4-10.2); CREATININE 1.01 mg/dl (0.61-1.24); POTASSIUM 3.8 mmol/L (3.5-5.1)
--- NOTE | 2017-03-03 09:50 | PN ---
DATE: 03/03/2017 SUBJECTIVE: The patient is feeling well, no shortness of breath, no chest pain, no palpitations. OBJECTIVE: VITAL SIGNS: Temperature 98.7, pulse 56, respirations 21, blood pressure 118/67, oxygen saturation 91 and 94% on room air. GENERAL: Well-developed, thin male in no acute distress, lying in bed. CHEST: Clear to auscultation bilaterally. No rales, rhonchi or wheezes. HEART: Irregularly irregular, bradycardic. ABDOMEN: Soft, nontender, nondistended. EXTREMITIES: No cyanosis, clubbing or edema. There are stasis changes bilateral lower extremities. LABORATORY DATA: Pending at the time of this dictation. ASSESSMENT AND PLAN 1. Acute combined congestive heart failure/bradycardia/chronic atrial fibrillation/nonischemic card iomyopathy/hypertension. The patient is improved on current medications. The patient is off of dig oxin and carvedilol with improved bradycardia. The patient continues to have mild bradycardia, but no need for continued hospitalization. Will discharge the patient home on amlodipine and Lasix, as well as potassium and the patient will follow up with me within 1 week and with cardiology within 4 to 6 weeks of discharge. 2. Thrombocytopenia. Will continue to monitor. The patient was instructed to stop drinking alcoho l or significantly decreased his intake as it is poisoning his body. Will continue to monitor his p latelets as outpatient. 3. Hyperlipidemia. We will continue with rosuvastatin as outpatient as well as diet. 4. Discharge plans. The patient will be discharged home with additional medications of Lasix and p otassium chloride. The patient will follow up with Abelardo Arias MD within 1 week of discharge and cardiology within 4 to 6 weeks of discharge. Dictated By: ABELARDO ARIAS MD SR/NTS Conf#: [id number] DID#: [id number]
[2017-03-03] MEDS: CLOBETASOL 0.05% 15 GM CR TOP SCH (09:51)
--- NOTE | 2017-03-04 08:29 | DS ---
DATE OF ADMISSION: 02/28/2017 DATE OF DISCHARGE: 03/03/2017 ADMITTING DIAGNOSIS: Congestive heart failure. DISCHARGE DIAGNOSES: 1. Acute combined systolic and diastolic heart failure. 2. Bradycardia. 3. Nonischemic cardiomyopathy. 4. Chronic atrial fibrillation. SECONDARY DIAGNOSES: 1. 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 2. Alcoholism. 3. Acute on chronic renal insufficiency. 4. Hyperlipidemia. CONSULTATIONS: With Dr. Graves from Cardiology. PROCEDURES: Echocardiogram, results: EF approximately 65% with mild concentric left ventricular hy pertrophy, mild enlargement of the left atrium, moderate enlargement of the right atrium, mild aorti c valve regurgitation, moderate pulmonary hypertension with estimated pressures of 59 mmHg, and mode rate tricuspid regurgitation. HOSPITAL COURSE: The patient is a 76-year-old male with nonischemic cardiomyopathy, chron ic atrial fibrillation, hypertension, hyperlipidemia, and alcohol abuse who was admitted with shortn ess of breath. The patient was significantly bradycardic and his digoxin and his carvedilol were he ld. Patient was given Lasix with improvement in his congestive heart failure, and his heart rate im proved being off the beta blockers and digoxin. The patient remained bradycardic but improved, as h e was in the 30s initially and at the time of discharge, the patient was in the 50s. The patient co ntinued to improve with the treatment he received and was discharged home in an improved state. DISCHARGE MEDICATIONS 1. Amlodipine 2.5 mg daily. 2. Rosuvastatin 5 mg daily. 3. Lasix 40 mg daily. 4. Potassium chloride 20 mEq daily. 5. Clobetasol 0.05% b.i.d. 6. Warfarin 7.5 mg daily. DISCHARGE PLANS: The patient will follow up with Abelardo Arias MD within 1 week, and follow up [facility] cardiology within 4 to 6 weeks of discharge. Dictated By: ABELARDO ARIAS MD SR/NTS Conf#: [id number] DID#: [id number]
== END 2017-03-03 14:07 | disposition home or self-care (01) | DRG 291 ==
LOC: E/R 18:04 → MS3 02-28 02:14 → OBSVTOIN 02-28 15:31 → TEL 03-01 22:18
PROVIDERS: ADMIT Internal Medicine; ATTEND Internal Medicine
DX: I13.0 Hypertensive heart and chronic kidney disease with heart failure and stage 1 through stage 4 chronic kidney disease, or unspecified chronic kidney disease (principal); I50.43 Acute on chronic combined systolic (congestive) and diastolic (congestive) heart failure; N17.9 Acute kidney failure, unspecified; D69.6 Thrombocytopenia, unspecified; I42.8 Other cardiomyopathies; N18.9 Chronic kidney disease, unspecified; R00.1 Bradycardia, unspecified; Z79.01 Long term (current) use of anticoagulants; T50.995A Adverse effect of other drugs, medicaments and biological substances, initial encounter; I48.91 Unspecified atrial fibrillation; F10.20 Alcohol dependence, uncomplicated; I48.2 Chronic atrial fibrillation; E78.5 Hyperlipidemia, unspecified; L30.9 Dermatitis, unspecified
CPT/HCPCS: 36415; 71010; 80048; 80053; 80162; 83880; 84443; 84484; 85025; 85610; 85730; 93005; 93306; 94664; 96374; G0378